=== PATIENT | female | born 1950 | race Caucasian/White ===

== ENCOUNTER 2017-02-23 13:01 | Outpatient (CLI) | payer BC, MEDICARE | END 2017-02-23 16:39 | LOC: D.MAMMO 13:01 | DX: R92.8 Other abnormal and inconclusive findings on diagnostic imaging of breast (principal) ==

== ENCOUNTER → 2017-08-23 12:39 | Outpatient (CLI) | payer BC, MEDICARE ==
[~2017-08-23 12:39] MED LIST: ATARAX 25 MG TA25 MG PO; DESERYL100 MG PO; DUEXIS 800-26.1 EACH PO; ELIQUIS2.5 MG PO; ESTRACE1 MG PO; KEFLEX500 MG PO; KLONOPIN0.5 MG PO; ULTRAM50 MG PO; ZOLOFT100 MG PO
[2017-09-09 11:53] VITALS: BMI 18.5
== END | disposition home or self-care (01) ==
LOC: D.LABREF 12:39
DX: M16.12 Unilateral primary osteoarthritis, left hip (principal); Z11.8 Encounter for screening for other infectious and parasitic diseases

== ENCOUNTER 2017-09-06 10:00 | Inpatient (IN) | payer BC, MEDICARE ==
[~2017-09-06] VITALS: Ht 162.6 cm; Wt 49.0 kg
--- NOTE | ~2017-09-06 | OP ---
PATIENT NAME: FAMILIA MORELOS MEDICAL RECORD: [id number] :48 LOCATION:D.MS Day.6 ADMISSION DATE:09/08/17 SURGEON: CAIN SIDHU DO DATE OF OPERATION: 09/08/2017 PROCEDURE PERFORMED: Left total hip arthroplasty. PREOPERATIVE DIAGNOSIS: Severe left hip osteoarthritis. POSTOPERATIVE DIAGNOSIS: Severe left hip osteoarthritis. INDICATIONS: Ms. Morelos is a 67-year-old female who was sent to my office by her primary care who has been dealing with severe left hip pain and loss of motion for quite some time. She said she was ready to have something done to treat it. She had x-rays and offered injection. She said that she did not want injection that she was tired of dealing with pain as this is affecting her activities of daily living and she is scheduled for left total hip. She was informed of the risks and benefits of the procedure in the office. SURGEON: Cain Sidhu DO COMPLICATIONS: None. BLOOD LOSS: Approximately 200 mL. DESCRIPTION OF PROCEDURE: The patient was taken to the operative suite, laid in supine position, given general anesthetic and given a gram of Ancef preoperatively. She was also given a gram of TXA. She was sedated and intubated and timeout was performed. Everyone was in agreement of correct side, site, and patient was then moved to the Towson table and positioned. The left lower extremity was prepped and draped in sterile fashion. Timeout was performed. Everyone was in agreement of the correct side, site, and patient. Once the patient was prepped and draped and all the instruments were thrown off and the procedure commenced with an incision on the anterior hip, right over the tensor fascia sang. Careful dissection was made down to the fascia over the tensor fascia sang and this was incised and the muscle belly was taken posteriorly. The fascia was taken anteriorly and the fascia over the rectus was then incised as well and careful dissection was made down to the vessels of the ascending branch of the lateral femoral circumflex artery. These were tied off and then coagulated with Aquamantys and then cut with the plasma blade. The capsule was then encountered and cleaned off with a Lopez, removing all the fat off of the capsule and then a capsulotomy was performed. The femoral neck was encountered, seeing large osteophytes over the neck and head of the femur. Retractors were then placed on either side of the neck inside the capsule and then a cut was made on the neck. An osteotome was then put into rotating the neck, so as to grab hold of the cork screw. The cork screw was then put into the femoral neck and the femoral head was taken out of the acetabulum. Acetabulum was then exposed using a Charnley and the labrum was removed and the ligamentum teres was coagulated with the Aquamantys. Once this was done, reaming commenced first medializing and then getting the correct position from 44 up to 48. The 48 cup was put in, seemed to be in very good position radiographically. The attention was then drawn to the femur. The femur was exposed. The hook was placed on the femur, first we lifted up and then the femur was extended, externally rotated, and abducted. Good exposure was made. Retractors were placed and broaching commenced, broached up to an 8 and trialed OPERATIVE REPORT [id number] FAMILIA MORELOS the 8 with a -3 neck, seemed to be a little bit long on the x-ray, so we went with a -6 head or neck rather for the final implant. The 8 was then removed, seemed to be a little bit loose, so we put in 9 broach down and had good bite with a 9 broach with no loosening. We then decided to put a 9 stem in as it had good fixation. The 9 stem was placed on the head. A 28 head and a 38 liner dual mobility head was put in and the hip was reduced. X-rays were taken and seemed to be good length. Once this was done, the femur was internally externally rotated and only motion from the small bowel was seen on the big ball and the hip was very stable. Capsule was then closed with a #2 Ethibond and the wrist was put into the wound after irrigation was done and then the tensor fascia sang was closed with a single [id number] stitch with #1 Vicryl and then a #1 Vicryl was ran along the fascia of the tensor fascia sang and then the irrigation was made and more Rajan was put into place and the skin was closed with 2-0 Vicryl in an interrupted fashion and then Prineo was placed on the skin. Telfa and Tegaderm were then placed over the hip wound. The patient was awakened and taken to recovery in stable condition. Blood loss approximately 200 mL. TRANSINT:[id number] Voice Confirmation ID: [id number] DOCUMENT ID: [id number] CAIN SIDHU DO at 0753 CC: [id number] DICTATION DATE: 09/08/171952 ICE GUARD SKATING RINK: 09/08/172215 ADM IN [facility] [address] [place] [address]
[~2017-09-06 10:00] MED LIST changes: -ATARAX 25 MG TA25 MG PO; -ELIQUIS2.5 MG PO; -KEFLEX500 MG PO; -ULTRAM50 MG PO
[2017-09-06 11:17] LABS: APPEARANCE CLEAR (CLEAR); BILIRUBIN NEGATIVE (NEGATIVE); COLOR STRAW (YELLOW); GLUCOSE NEGATIVE (NEGATIVE); KETONE NEGATIVE (NEGATIVE); NITRITE NEGATIVE (NEGATIVE); PROTEIN NEGATIVE (NEGATIVE); SPECIFIC GRAVITY 1.005 (1.005-1.020); UROBILINOGEN NORMAL (NORMAL)
[2017-09-06 11:18] LABS: BASOPHILS 0.3 % (0-2); EOSINOPHILS 0.8 % (0-7); HEMATOCRIT 44.5 % (36.0-48.0); LYMPHOCYTES 31.9 % (15-50); MCH 34.2 pg (26.0-34.0); MCHC 33.7 g/dL (31.0-37.0); MCV 101.6 fL (80.0-100.0); MEAN PLATELET VOLUME 9.1 fL (7.4-10.4); MONOCYTES 15.7 % (2-11); NEUTROPHILS 51.3 % (40-80); PLATELET COUNT 170 10x3/uL (130-400); RBC 4.38 10x6/uL (4.00-5.40); RDW 11.9 % (11.5-14.5); WBC 3.6 10x3/uL (4.8-10.8)
[2017-09-06 11:27] LABS: CALC OSMOLALITY 272 mosm/kg (275-300); CALCIUM 9.2 mg/dL (8.5-10.1); CARBON DIOXIDE 34.5 mmol/L (21.0-32.0); CHLORIDE - SERUM 99 mmol/L (98-107); CREATININE - SERUM 0.6 mg/dL (0.6-1.3); GLUCOSE 85 mg/dL (74-106); SODIUM 137 mmol/L (136-145); UREA NITROGEN 13 mg/dL (7-18); eGFR NON AFRICAN AMERICAN > 90 mL/min (90-120)
[2017-09-06 11:28] LABS: APTT 26.8 SECONDS (22.8-39.4); INR 0.91 (0.85-1.17); PROTIME 11.9 SECONDS (11.6-15.0)
[2017-09-08] VITALS (7 sets, daily range): BP systolic 148–179; BP diastolic 58–89; BMI 18.5
[2017-09-09] VITALS (8 sets, daily range): BP systolic 122–171; BP diastolic 47–89; Ht 162.6 cm; Wt 49.0 kg
[2017-09-09 05:07] LABS: HEMATOCRIT 40.6 % (36.0-48.0); HEMOGLOBIN 13.6 g/dL (12-16); MCH 33.7 pg (26.0-34.0); MCHC 33.5 g/dL (31.0-37.0); MCV 100.7 fL (80.0-100.0); MEAN PLATELET VOLUME 9.6 fL (7.4-10.4); RBC 4.03 10x6/uL (4.00-5.40); RDW 11.9 % (11.5-14.5); WBC 11.9 10x3/uL (4.8-10.8)
[2017-09-10 07:28] VITALS: BP 160/64
[2017-09-10 07:34] LABS: HEMATOCRIT 34.3 % (36.0-48.0); HEMOGLOBIN 11.6 g/dL (12-16); MCH 33.4 pg (26.0-34.0); MCHC 33.8 g/dL (31.0-37.0); MCV 98.8 fL (80.0-100.0); MEAN PLATELET VOLUME 8.9 fL (7.4-10.4); RBC 3.47 10x6/uL (4.00-5.40)
[2017-09-10 07:36] LABS: WBC 6.5 10x3/uL (4.8-10.8)
[2017-09-10 11:04] VITALS: BP 159/61
[2017-09-10 20:00] VITALS: BP 161/65
[2017-09-11] VITALS: BP 159/71
[2017-09-11 04:00] VITALS: BP 158/68
[2017-09-11 05:29] LABS: HEMATOCRIT 34.8 % (36.0-48.0); HEMOGLOBIN 11.8 g/dL (12-16)
[2017-09-11 08:51] VITALS: BP 132/52
[2017-09-11] MEDS ORDERED: ELIQUIS2.5 MG PO (09:05)
[2017-09-11] MEDS ORDERED: ULTRAM50 MG PO (09:06)
[2017-09-11] MEDS ORDERED: ATARAX 25 MG TA25 MG PO (09:06)
[2017-09-11] MEDS ORDERED: KEFLEX500 MG PO (09:07)
== END 2017-09-11 13:00 | disposition home or self-care (01) | DRG 470 ==
LOC: D.SDCHOLD 09-08 05:19 → D.MS 09-08 05:19 → D.SDCHOLD 09-08 10:00 → D.MS 09-08 19:43
PROVIDERS: Orthopaedic Surgery
PROC: 0SRB0JZ Replacement of Left Hip Joint with Synthetic Substitute, Open Approach (ICD-10-PCS; principal; 2017-09-08 13:45)
DX: M16.12 Unilateral primary osteoarthritis, left hip (principal); I10 Essential (primary) hypertension

== ENCOUNTER → 2018-06-01 14:05 | Outpatient (CLI) | payer BC, MEDICARE ==
[2017-09-09 11:53] VITALS: BMI 18.5
[~2018-06-01 14:05] MED LIST changes: +ATARAX 25 MG TA25 MG PO; +ELIQUIS2.5 MG PO; +KEFLEX500 MG PO; +ULTRAM50 MG PO
== END | disposition home or self-care (01) ==
LOC: D.LABREF 14:05
DX: M16.11 Unilateral primary osteoarthritis, right hip (principal)

== ENCOUNTER 2018-06-19 07:45 | Inpatient (IN) | payer BC, MEDICARE ==
[2018-06-13 13:39] LABS: BASOPHILS 0.7 % (0-2); EOSINOPHILS 4.1 % (0-7); HEMATOCRIT 40.5 % (36.0-48.0); HEMOGLOBIN 14.1 g/dL (12-16); LYMPHOCYTES 26.2 % (15-50); MCH 34.1 pg (26.0-34.0); MCHC 34.8 g/dL (31.0-37.0); MCV 97.8 fL (80.0-100.0); MONOCYTES 11.3 % (2-11); NEUTROPHILS 57.7 % (40-80); RBC 4.14 10x6/uL (4.00-5.40); RDW 12.2 % (11.5-14.5)
[2018-06-13 13:54] LABS: APTT 28.4 SECONDS (22.8-39.4); INR 0.97 (0.85-1.17); PROTIME 12.5 SECONDS (11.6-15.0)
[2018-06-13 13:56] LABS: CALC OSMOLALITY 276 mosm/kg (275-300); CALCIUM 9.1 mg/dL (8.5-10.1); CARBON DIOXIDE 29.6 mmol/L (21.0-32.0); CHLORIDE - SERUM 102 mmol/L (98-107); CREATININE - SERUM 0.7 mg/dL (0.6-1.3); GLUCOSE 94 mg/dL (74-106); POTASSIUM - SERUM 3.8 mmol/L (3.5-5.1); SODIUM 138 mmol/L (136-145); UREA NITROGEN 15 mg/dL (7-18); eGFR NON AFRICAN AMERICAN 88 mL/min (90-120)
[2018-06-13 13:57] LABS: PLATELET COUNT 215 10x3/uL (130-400)
[2018-06-13 14:06] LABS: APPEARANCE CLEAR (CLEAR); BILIRUBIN NEGATIVE (NEGATIVE); COLOR YELLOW (YELLOW); GLUCOSE NEGATIVE (NEGATIVE); KETONE NEGATIVE (NEGATIVE); NITRITE NEGATIVE (NEGATIVE); PROTEIN NEGATIVE (NEGATIVE); SPECIFIC GRAVITY 1.015 (1.005-1.020); UROBILINOGEN NORMAL (NORMAL)
[2018-06-13 14:07] LABS: BACTERIA MODERATE /hpf (NONE SEEN); EPITHELIAL CELLS OCC /hpf (0-5); RED CELLS - URINE NONE SEEN /hpf (0-5); WHITE CELLS - URINE OCC /hpf (0-5)
[~2018-06-19] VITALS: Ht 162.6 cm; Wt 49.1 kg
--- NOTE | ~2018-06-19 | MORECARE ---
CASE MANAGEMENT DISCHARGE SUMMARY PATIENT: FAMILIA HERNÁNDEZ UNIT: [id number] ADM DATE: 06/19/18 AGE: 67 : 49 SEX: F ROOM/BED: D.2210 AUTHOR: SILVIA VALENTIN PHYSICIAN: REFERRING PHYSICIAN: MARTHA SIDHU DO DATE OF SERVICE: 06/25/18 Discharge Plan Patient Name: FAMILIA HERNÁNDEZ Facility: [facility]:[place] : 1950 Planned Disposition: Home Anticipated Discharge Date: Discharge Date: 06/22/2018 Expected LOS: Initial Reviewer: [email or web address] Initial Review Date: 06/19/2018 Generated: 06/25/18 2:45 pm Comments DCP- Discharge Planning Updated by [email or web address]: Klarissa Rock on 06/22/18 8:[address] Patient will be discharging today, BSC will be delivered to patient. I spoke with Mary Grace at [facility]. CM will continue to follow and assist with dc planning as needed DCP- Discharge Planning Updated by [email or web address]: Klarissa Rock on 06/20/18 1:[address] Patient Name: FAMILIA HERNÁNDEZ Admission Status: Elective Accout number: [id number] Admission Date: 06-19-2018 : 1950 Admission Diagnosis: Attending: MARTHA SIDHU Current LOS: 1 Anticipated DC Date: Planned Disposition: Home Primary Insurance: [employer] [facility] [place] [facility] Discharge Planning Comments: CM met with patient to assess discharge planning needs. Patient stated that she is independent with her care at home. Either her boyfriend or her son will be the one to take her home at discharge. She has a walker and a shower chair at home. She is requesting a BSC. CM will order one prior to DC. She would like to do OP PT at [facility]. I have set up her appointment for MondayJun 25 @ 10:00 am. A copy will be given to patient at [place]. Patient stated her home is safe to return. CM will continue to follow and assist with DC planning . Nuclear [employer] Mechanical Specialist: Klarissa Rock DCPIA - Discharge Planning Initial Assessment Updated by [email or web address]: Klarissa Rock on 06/20/18 2:28 pm * Is the patient Alert and Oriented? Yes * How many steps to enter\exit or inside your home? * PCP TERESO * Pharmacy [facility] [address] * Preadmission Environment Home with Family * ADLs Independent * Equipment Shower Chair Walker * List name and contact numbers for known caregivers / representatives who currently or will assist patient after discharge: MAIA [phone] * Verbal permission to speak to the caregivers and representatives has been obtained from the patient. Yes * Community resources currently utilized None * Additional services required to return to the preadmission environment? Yes * Can the patient safely return to the preadmission environment? Yes * Has this patient been hospitalized within the prior 30 days at any hospital? No Last DP export: 06/22/18 8:35 Patient Name: FAMILIA HERNÁNDEZ Page 13914 at 1345 All edits/amendments must be made on the electronic document DICTATION DATE: 06/25/18 134 APPLIED PSYCHOLOGY PROFESSOR: SHERRIE 06/25/18 1344 RPT#: [id number] DC DATE:06/22/18 STATUS: DIS IN [facility] [address] [place] [address] END OF REPORT
--- NOTE | ~2018-06-19 | MORECARE ---
CASE MANAGEMENT DISCHARGE SUMMARY PATIENT: FAMILIA HERNÁNDEZ UNIT: [id number] ADM DATE: 06/19/18 AGE: 67 : 49 SEX: F ROOM/BED: D.2210 AUTHOR: SILVIA VALENTIN PHYSICIAN: REFERRING PHYSICIAN: MARTHA SIDHU DO DATE OF SERVICE: 06/22/18 Discharge Plan Patient Name: FAMILIA HERNÁNDEZ Facility: [facility]:[place] : 1950 Planned Disposition: Home Anticipated Discharge Date: Discharge Date: Expected LOS: Initial Reviewer: [email or web address] Initial Review Date: 06/19/2018 Generated: 06/22/18 9:01 am Comments DCP- Discharge Planning Updated by [email or web address]: Klarissa Rock on 06/20/18 1:[address] Patient Name: FAMILIA HERNÁNDEZ Admission Status: Elective Accout number: [id number] Admission Date: 06-19-2018 : 1950 Admission Diagnosis: Attending: MARTHA SIDHU Current LOS: 1 Anticipated DC Date: Planned Disposition: Home Primary Insurance: [employer] Discharge Planning Comments: CM met with patient to assess discharge planning needs. Patient stated that she is independent with her care at home. Either her boyfriend or her son will be the one to take her home at discharge. She has a walker and a shower chair at home. She is requesting a BSC. CM will order one prior to DC. She would like to do OP PT at [facility]. I have set up her appointment for MondayJun 25 @ 10:00 am. A copy will be given to patient at DC. Patient stated her home is safe to return. CM will continue to follow and assist with DC planning . Finish Sander: Klarissa Rock DCPIA - Discharge Planning Initial Assessment Updated by [email or web address]: Klarissa Rock on 06/20/18 2:28 pm * Is the patient Alert and Oriented? Yes * How many steps to enter\exit or inside your home? * PCP TERESO * Pharmacy [facility] [address] * Preadmission Environment Home with Family * ADLs Independent * Equipment Shower Chair Walker * List name and contact numbers for known caregivers / representatives who currently or will assist patient after discharge: MAIA [phone] * Verbal permission to speak to the caregivers and representatives has been obtained from the patient. Yes * Community resources currently utilized None * Additional services required to return to the preadmission environment? Yes * Can the patient safely return to the preadmission environment? Yes * Has this patient been hospitalized within the prior 30 days at any hospital? No External Providers External Provider: [facility] Next Contact Date: Service Request Date: Service Type: Resolution: Reviewer: Comments: Last DP export: 06/20/18 1:37 Patient Name: FAMILIA HERNÁNDEZ Page [phone] at 0801 All edits/amendments must be made on the electronic document DICTATION DATE: 06/22/18800 CUSTOMER MANAGEMENT SPECIALIST: SHERRIE 06/22/18800 RPT#: [id number] DC DATE: STATUS: ADM IN [facility] [address] [place] [address] END OF REPORT
--- NOTE | ~2018-06-19 | OP ---
PATIENT NAME: FAMILIA MORELOS MEDICAL RECORD: [id number] :48 LOCATION:D.MS Day.2210 ADMISSION DATE:06/19/18 SURGEON: CAIN SIDHU DO DATE OF OPERATION: 06/19/2018 PROCEDURE PERFORMED: Right total hip arthroplasty. PREOPERATIVE DIAGNOSES: Right hip osteoarthritis, end stage; and leg length discrepancy. POSTOPERATIVE DIAGNOSES: Right hip osteoarthritis, end stage; and leg length discrepancy. INDICATIONS: Ms. Morelos is a 67-year-old female who had her left hip done almost 10 months ago, underwent left total hip arthroplasty. Due to her small size, the hip was lengthened quite a bit on the left and she had leg length discrepancy. She also had right hip osteoarthritis. She tried all forms of nonoperative treatment for the right hip including wearing a shoe lift, physical therapy, and oral anti-inflammatories. The pain was to a point where she could not tolerate and was tired of it, affecting her activities of daily living. When she discussed this with me, she was scheduled for right total hip arthroplasty. I told her I would attempt to equal her leg lengths out and get as close to as I could. She is okay with that. She is aware of risks and benefits including infection, bleeding, damage to nerves and vessels, need for further surgery, fracture; and she consented to the procedure. SURGEON: Cain Sidhu DO DESCRIPTION OF PROCEDURE: The patient was taken to the operative suite after given a block by anesthesia in the preoperative area, laid in the supine position, placed on the Hume table. After she was intubated and sedated, the right hip was then prepped and draped in a sterile fashion. Time-out was performed. Everyone was in agreement of correct side, site, patient, and procedure. The patient received 2 grams of Ancef and 80 units of gentamicin prior to the incision. Incision was then began over the tensor fascia sang and careful dissection was made down to the tensor fascia sang fascia. This was incised. The fascia was taken superiorly, the muscle belly inferiorly, anterior and posterior respectively. The interval then was entered in between the rectus muscle and this was incised and then the retractor was used to push the rectus medially and the tensor fascia sang laterally. The ascending branch of the lateral femoral circumflex was then tied off and coagulated with the Aquamantys and cut. The capsule was then exposed with Homans on either side of the neck and the capsulotomy was performed and tagged. Capsule was tagged. The retractor was then moved inside and around the neck and neck cut was done. Then, the head was removed and then the acetabulum was exposed. The pulvinar was removed with the ligamentum teres as well as the labrum by first medializing with reamers and then reaming up to a 48. The 48 cup was then placed and was seen to be in good position. Femur was then exposed and recut due to neck lengthening a little long and began with the canal finder and then the [employer] cutter. The 4 stem was put in, was the smallest stem we had. X-ray was done and it seemed that we could lateralize a little bit more on the proximal part of the femur. This was done and then a #6 stem was put in and the hip was reduced. It seemed to be in adequate position due to the lengthening that needed to be done and a #6 stem was placed with standard offset head and neck rather. X-ray was then done after that and seemed to be very very close to equal lengths to OPERATIVE REPORT [id number] FAMILIA MORELOS the left side on x-ray. The hip was then thoroughly irrigated and tobramycin and vancomycin were placed deep. The capsule was not closed due to good stability of the hip. Surgicel beads were placed on top of that. Then, the tensor fascia sang fascia was closed with #1 Vicryl in first [id number]-rk-fremt and then a running locking stitch. Then, the layer on top of this was irrigated and more vancomycin and tobramycin were placed as well as Surgicel and then 2-0 Vicryl in inverted interrupted fashion with 4-0 Monocryl ran on the skin. Dermabond with Prineo were used on the skin. Telfa and Tegaderm were placed on the skin. The patient was awakened and taken to the recovery in stable condition. Blood loss was approximately 200 mL. Complications were none. TRANSINT:[id number] Voice Confirmation ID: [id number] DOCUMENT ID: [id number] CAIN SIDHU DO at 5059 CC: [id number] DICTATION DATE: 06/19/18 1323 COLOR DRUM WORKER: 06/19/18 1501 ADM IN [facility] [address] [place] [address]
--- NOTE | ~2018-06-19 | MORECARE ---
CASE MANAGEMENT DISCHARGE SUMMARY PATIENT: FAMILIA HERNÁNDEZ UNIT: [id number] ADM DATE: 06/19/18 AGE: 67 : 49 SEX: F ROOM/BED: D.2210 AUTHOR: SILVIA VALENTIN PHYSICIAN: REFERRING PHYSICIAN: MARTHA SIDHU DO DATE OF SERVICE: 06/22/18 Discharge Plan Patient Name: FAMILIA HERNÁNDEZ Facility: [facility]:[place] : 1950 Planned Disposition: Home Anticipated Discharge Date: Discharge Date: Expected LOS: Initial Reviewer: [email or web address] Initial Review Date: 06/19/2018 Generated: 06/22/18 10:35 am Comments DCP- Discharge Planning Updated by [email or web address]: Klarissa Rock on 06/22/18 8:[address] Patient will be discharging today, BSC will be delivered to patient. I spoke with Mary Grace at [facility]. CM will continue to follow and assist with dc planning as needed DCP- Discharge Planning Updated by [email or web address]: Klarissa Rock on 06/20/18 1:[address] Patient Name: FAMILIA HERNÁNDEZ Admission Status: Elective Accout number: [id number] Admission Date: 06-19-2018 : 1950 Admission Diagnosis: Attending: MARTHA SIDHU Current LOS: 1 Anticipated DC Date: Planned Disposition: Home Primary Insurance: [employer] [facility] [place] Discharge Planning Comments: CM met with patient to assess discharge planning needs. Patient stated that she is independent with her care at home. Either her boyfriend or her son will be the one to take her home at discharge. She has a walker and a shower chair at home. She is requesting a BSC. CM will order one prior to DC. She would like to do OP PT at [facility]. I have set up her appointment for MondayJun 25 @ 10:00 am. A copy will be given to patient at [place]. Patient stated her home is safe to return. CM will continue to follow and assist with DC planning . [employer] Supervisor: Klarissa Rock DCPIA - Discharge Planning Initial Assessment Updated by [email or web address]: Klarissa Rock on 06/20/18 2:28 pm * Is the patient Alert and Oriented? Yes * How many steps to enter\exit or inside your home? * PCP TERESO * Pharmacy [facility] [address] * Preadmission Environment Home with Family * ADLs Independent * Equipment Shower Chair Walker * List name and contact numbers for known caregivers / representatives who currently or will assist patient after discharge: MAIA [phone] * Verbal permission to speak to the caregivers and representatives has been obtained from the patient. Yes * Community resources currently utilized None * Additional services required to return to the preadmission environment? Yes * Can the patient safely return to the preadmission environment? Yes * Has this patient been hospitalized within the prior 30 days at any hospital? No Last DP export: 06/22/18 7:01 Patient Name: FAMILIA HERNÁNDEZ Page [phone] at 0936 All edits/amendments must be made on the electronic document DICTATION DATE: 06/22/18934 MARKETING STRATEGY MANAGER: SHERRIE 06/22/18934 RPT#: [id number] DC DATE: STATUS: ADM IN [facility] [address] [place] [address] END OF REPORT
[2018-06-19] MEDS ORDERED: CITRACAL + D E1 EACH PO (09:08)
[2018-06-19 09:14] VITALS: BP 148/65; BMI 18.5
[2018-06-19 15:02] VITALS: BP 134/68
[2018-06-19 15:44] VITALS: Ht 162.6 cm; Wt 49.1 kg
[2018-06-19 20:06] VITALS: BP 112/62
[2018-06-20 04:11] VITALS: BP 119/61
[2018-06-20 06:11] LABS: HEMOGLOBIN 10.3 g/dL (12-16); MCHC 33.2 g/dL (31.0-37.0); MCV 99.4 fL (80.0-100.0); MEAN PLATELET VOLUME 9.1 fL (7.4-10.4); RBC 3.12 10x6/uL (4.00-5.40); RDW 12.4 % (11.5-14.5); WBC 9.5 10x3/uL (4.8-10.8)
[2018-06-20 08:20] VITALS: BP 122/60
[2018-06-20 09:05] LABS: CALC OSMOLALITY 268 mosm/kg (275-300); CALCIUM 7.4 mg/dL (8.5-10.1); CHLORIDE - SERUM 101 mmol/L (98-107); CREATININE - SERUM 0.6 mg/dL (0.6-1.3); GLUCOSE 102 mg/dL (74-106); SODIUM 135 mmol/L (136-145); UREA NITROGEN 11 mg/dL (7-18); eGFR NON AFRICAN AMERICAN > 90 mL/min (90-120)
[2018-06-20 12:38] VITALS: BP 128/70
[2018-06-20 17:06] VITALS: BP 130/68
[2018-06-20 20:29] VITALS: BP 116/54
[2018-06-21 05:12] VITALS: BP 139/50
[2018-06-21 06:00] LABS: BASOPHILS 0.1 % (0-2); EOSINOPHILS 1.4 % (0-7); HEMATOCRIT 30.8 % (36.0-48.0); HEMOGLOBIN 10.3 g/dL (12-16); IMMATURE GRANULOCYTES 0.3 % (0-5); LYMPHOCYTES 15.5 % (15-50); MCH 33.3 pg (26.0-34.0); MCHC 33.4 g/dL (31.0-37.0); MCV 99.7 fL (80.0-100.0); MEAN PLATELET VOLUME 9.1 fL (7.4-10.4); MONOCYTES 17.5 % (2-11); NEUTROPHILS 65.2 % (40-80); PLATELET COUNT 176 10x3/uL (130-400); RBC 3.09 10x6/uL (4.00-5.40); RDW 12.5 % (11.5-14.5)
[2018-06-21 06:11] LABS: CALC OSMOLALITY 280 mosm/kg (275-300); CARBON DIOXIDE 27.9 mmol/L (21.0-32.0); CHLORIDE - SERUM 107 mmol/L (98-107); CREATININE - SERUM 0.6 mg/dL (0.6-1.3); GLUCOSE 106 mg/dL (74-106); POTASSIUM - SERUM 3.4 mmol/L (3.5-5.1); SODIUM 142 mmol/L (136-145); eGFR NON AFRICAN AMERICAN > 90 mL/min (90-120)
[2018-06-21 06:18] LABS: UREA NITROGEN 6 mg/dL (7-18)
[2018-06-21 08:00] VITALS: BP 104/48
[2018-06-21 08:45] VITALS: BP 137/48
[2018-06-21 10:02] VITALS: BP 139/50
[2018-06-21 12:45] VITALS: BP 134/46
[2018-06-21 20:00] VITALS: BP 139/60
[2018-06-22] VITALS: BP 155/66
[2018-06-22 04:00] VITALS: BP 147/59
[2018-06-22 05:08] LABS: BASOPHILS 0.1 % (0-2); EOSINOPHILS 1.9 % (0-7); HEMATOCRIT 28.1 % (36.0-48.0); HEMOGLOBIN 9.4 g/dL (12-16); IMMATURE GRANULOCYTES 0.1 % (0-5); LYMPHOCYTES 14.9 % (15-50); MCHC 33.5 g/dL (31.0-37.0); MCV 98.6 fL (80.0-100.0); MEAN PLATELET VOLUME 8.8 fL (7.4-10.4); PLATELET COUNT 163 10x3/uL (130-400); RBC 2.85 10x6/uL (4.00-5.40); RDW 12.5 % (11.5-14.5); WBC 7.3 10x3/uL (4.8-10.8)
[2018-06-22 05:28] LABS: CALC OSMOLALITY 279 mosm/kg (275-300); CALCIUM 8.2 mg/dL (8.5-10.1); CARBON DIOXIDE 27.5 mmol/L (21.0-32.0); CHLORIDE - SERUM 105 mmol/L (98-107); CREATININE - SERUM 0.5 mg/dL (0.6-1.3); GLUCOSE 112 mg/dL (74-106); POTASSIUM - SERUM 3.4 mmol/L (3.5-5.1); SODIUM 141 mmol/L (136-145); UREA NITROGEN 6 mg/dL (7-18); eGFR NON AFRICAN AMERICAN > 90 mL/min (90-120)
[2018-06-22] MEDS ORDERED: ELIQUIS2.5 MG PO (06:32)
[2018-06-22] MEDS ORDERED: TYLENOL W/CODEI1 TAB PO (06:33)
[2018-06-22] MEDS ORDERED: ULTRAM50 MG PO (06:33)
[2018-06-22] MEDS ORDERED: KEFLEX500 MG PO (06:33)
[2018-06-22 09:12] VITALS: BP 123/57
== END 2018-06-22 12:06 | disposition home or self-care (01) | DRG 470 ==
LOC: D.SDCHOLD 07:45 → D.MS 07:45 → D.M2 08:35 → D.SDCHOLD 08:45 → D.M2 08:45 → D.MS 14:35
PROVIDERS: Internal Medicine Nephrology; Orthopaedic Surgery
PROC: 0SR90JZ Replacement of Right Hip Joint with Synthetic Substitute, Open Approach (ICD-10-PCS; principal; 2018-06-19 10:15)
DX: M16.11 Unilateral primary osteoarthritis, right hip (principal); M21.70 Unequal limb length (acquired), unspecified site; G47.30 Sleep apnea, unspecified

== ENCOUNTER 2019-03-04 08:00 | Outpatient (CLI) | payer MEDICARE, BC ==
[2018-06-19 15:44] VITALS: BMI 18.5
[~2019-03-04 08:00] MED LIST changes: +CITRACAL + D E1 EACH PO; +TYLENOL W/CODEI1 TAB PO
== END 2019-03-04 23:59 | disposition home or self-care (01) ==
LOC: D.MAMMO 08:00
PROVIDERS: ATTEND Emergency Medicine
DX: Z12.31 Encounter for screening mammogram for malignant neoplasm of breast (principal)

== ENCOUNTER 2021-02-22 14:00 | Outpatient (CLI) | payer MEDICARE, BC ==
[2018-06-19 15:44] VITALS: BMI 18.5
== END 2021-02-22 23:59 | disposition home or self-care (01) ==
LOC: D.MAMMO 14:00
PROVIDERS: ATTEND Family Medicine
DX: Z12.31 Encounter for screening mammogram for malignant neoplasm of breast (principal)